=== PATIENT | female | born 1995 | race Caucasian/White ===

== ENCOUNTER 2023-02-19 16:37 | Inpatient (IN) | payer OTHER, SELFPAY ==
[2023-02-19 18:48] VITALS: BMI 29.2
[2023-02-19] MEDS ORDERED: Lidocaine 1% (PF) 30 ML VIAL SC PRN (19:35)
[2023-02-19] MEDS ORDERED: hydrALAZINE 20 MG/ML VIAL SLOW IVP PRN (19:35)
[2023-02-19] MEDS ORDERED: Butorphanol Tartrate 1 MG/ML VIAL SLOW IVP PRN (19:35)
[2023-02-19] MEDS ORDERED: Ondansetron PF 4 MG/2 ML Vial IVP PRN ×2 (19:35→23:26)
[2023-02-19] MEDS ORDERED: HYDROcodone/Acetaminophen 5/325 mg Tablet PO PRN ×2 (19:35)
[2023-02-19] MEDS ORDERED: Ibuprofen 800 MG TAB PO PRN (19:35)
[2023-02-19] MEDS ORDERED: Methylergonovine 0.2 MG/ML VIAL IM PRN (19:35)
[2023-02-19] MEDS ORDERED: Misoprostol 200 MCG TAB PR PRN (19:35)
[2023-02-19] MEDS ORDERED: Promethazine HCl 25 MG/ML VIAL IM PRN ×2 (19:35→23:26)
[2023-02-19] MEDS ORDERED: Misoprostol 100 MCG TAB VAG SCH (19:45)
[2023-02-19] MEDS ORDERED: Lactated Ringer's 1,000 ML IV SCH ×2 (19:45→21:45)
[2023-02-19] MEDS ORDERED: NS w/ Oxytocin 30 units 500 ML IV SCH ×2 (19:45)
[2023-02-19 20:02] LABS: Hemoglobin 11.8 g/dL (12.0-15.5); Mean Corpuscular HGB CONC 34.4 g/dL (32.0-36.0); Mean Corpuscular Hemoglobin 32.2 pg (27.0-33.0); Mean Corpuscular Volume 93.5 fl (81.6-98.3); Mean Platelet Volume 10.7 fl (7.4-10.4); Platelet Count 218 10x3/uL (150-450); RBC Distribution Width 12.4 % (11.5-14.5); Red Blood Cell (RBC) Count 3.67 10x6/uL (3.90-5.03); White Blood Cell (WBC) Count 9.7 10x3/uL (3.5-10.5)
[2023-02-19 20:22] LABS: Syphilis Antibody Nonreactive (Nonreactive)
[2023-02-19 20:23] LABS: HBSAg Index 0.16 S/CO (0-0.99); Hep B Surf Ag - L&D Non-Reactive S/CO (NonReactive)
[2023-02-19 22:19] LABS: #Monocytes 0.8 10x3/uL (0.0-1.1); #Neutrophils 7.2 10x3/uL (1.5-8.4); %Basophils 0.3 % (0.0-2.0); %Eosinophils 0.4 % (0.0-6.0); %Lymphocytes 15.5 % (18.0-47.0); %Monocytes 7.9 % (0.0-10.0); %Neutrophils 75.6 % (40.0-75.0); Mean Corpuscular HGB CONC 35.2 g/dL (32.0-36.0); Mean Corpuscular Hemoglobin 32.9 pg (27.0-33.0); Mean Corpuscular Volume 93.4 fl (81.6-98.3); Mean Platelet Volume 10.6 fl (7.4-10.4); Platelet Count 209 10x3/uL (150-450); RBC Distribution Width 12.5 % (11.5-14.5); Red Blood Cell (RBC) Count 3.65 10x6/uL (3.90-5.03); White Blood Cell (WBC) Count 9.5 10x3/uL (3.5-10.5)
[2023-02-19 22:26] LABS: ALT (SGPT) 11 U/L (8-55); AST (SGOT) 20 U/L (5-34); Albumin 3.8 g/dL (3.5-5.0); Alkaline Phosphatase 196 U/L (40-110); Anion Gap 19 mmol/L (10-20); BUN (Urea Nitrogen) 9 mg/dL (7.0-18.7); Bilirubin, Total 0.3 mg/dL (0.2-1.2); Calc. Creatinine Clearance 159 mL/min (70-130); Calcium 9.3 mg/dL (7.8-10.44); Carbon Dioxide 17 mmol/L (22-29); Chloride 106 mmol/L (98-107); Estimated GFR 116; Globulin 2.6 g/dL (2.4-3.5); Glucose 95 mg/dL (70-105); Magnesium 1.6 mg/dL (1.6-2.6); Potassium 4.1 mmol/L (3.5-5.1); Protein, Total 6.4 g/dL (6.0-8.3); Sodium 138 mmol/L (136-145)
[2023-02-19] MEDS ORDERED: CEFAZOLIN 2 GM VIAL ONE (22:47)
[2023-02-19] MEDS ORDERED: Azithromycin 500 MG VIAL ONE (22:47)
[2023-02-19] MEDS ORDERED: Ondansetron PF 4 MG/2 ML Vial ONE (22:58)
[2023-02-19] MEDS ORDERED: Dexamethasone 4 mg/ml Vial ONE (22:58)
[2023-02-19] MEDS ORDERED: Oxytocin 10 UNITS/ML VIAL ONE (22:58)
[2023-02-19] MEDS ORDERED: Fentanyl 100 MCG/2 ML VIAL ONE (22:59)
[2023-02-19] MEDS ORDERED: Morphine PF 10 MG/10 ML VIAL ONE (22:59)
[2023-02-19] MEDS ORDERED: Bicitra 30 ML UDCUP PO PRN (23:26)
[2023-02-19] MEDS ORDERED: HYDROmorphone 2 MG/ML VIAL SLOW IVP PRN (23:26)
[2023-02-19] MEDS ORDERED: Naloxone HCl 0.4 mg/ml Vial IV PRN (23:26)
[2023-02-19] MEDS ORDERED: Promethazine HCl 25 MG SUPP PR PRN (23:26)
[2023-02-19] MEDS ORDERED: Moisturizing Cream (Eucerin) 113 GM JAR TOP PRN (23:26)
[2023-02-19] MEDS ORDERED: diphenhydrAMINE 50 MG/ML VIAL IVP PRN (23:26)
[2023-02-19] MEDS ORDERED: Fentanyl 100 MCG/2 ML VIAL SLOW IVP PRN (23:26)
[2023-02-19] MEDS ORDERED: Ketorolac Tromethamine 30 MG/ML VIAL IVP PRN (23:26)
[2023-02-19] MEDS ORDERED: Meperidine HCl/PF 25 MG/ML VIAL SLOW IVP PRN (23:26)
[2023-02-19] MEDS ORDERED: Famotidine/PF 20 mg/2ml Vial SLOW IVP PRN (23:26)
[2023-02-19] MEDS ORDERED: Naloxone HCl 0.4 mg/ml Vial IVP PRN ×2 (23:26)
[2023-02-19] MEDS ORDERED: Ondansetron HCl/PF 4 MG/2 ML Vial IVP PRN (23:26)
[2023-02-19] MEDS ORDERED: Ketorolac Tromethamine 30 MG/ML VIAL IVP SCH (23:30)
[2023-02-19] MEDS ORDERED: CEFAZOLIN 2 GM in Sodium Chloride 0.9% 100 ML IVPB SCH (23:30)
[2023-02-19] MEDS ORDERED: Communication Order-Pharmacy FS SCH (23:30)
[2023-02-19 23:47] LABS: RapidComm Collect By CBN
[2023-02-19 23:48] LABS: RapidComm Collect By CBN; pH (Cord, venous) 7.297 (7.250-7.350)
[2023-02-20] MEDS ORDERED: Ketorolac Tromethamine 30 MG/ML VIAL ONE (00:03)
[2023-02-20] MEDS ORDERED: Misoprostol 200 MCG TAB PR PRN (07:11)
[2023-02-20] MEDS ORDERED: Methylergonovine 0.2 MG/ML VIAL IM PRN (07:11)
[2023-02-20] MEDS ORDERED: hydrALAZINE 20 MG/ML VIAL SLOW IVP PRN (07:11)
[2023-02-20] MEDS ORDERED: Ondansetron PF 4 MG/2 ML Vial IVP PRN (07:11)
[2023-02-20] MEDS ORDERED: diphenhydrAMINE 25 MG CAP PO PRN (07:11)
[2023-02-20] MEDS ORDERED: NS w/ Oxytocin 30 units 500 ML IV SCH (07:11)
[2023-02-20] MEDS ORDERED: Bisacodyl 10 MG SUPP PR PRN (07:11)
[2023-02-20] MEDS ORDERED: Boostrix 0.5 ML (Tdap) VIAL (>/=7 yrs of age) IM ONE (07:11)
[2023-02-20] MEDS ORDERED: Promethazine HCl 25 MG/ML VIAL IM PRN (07:11)
[2023-02-20] MEDS ORDERED: Simethicone Chewable 80 MG TAB PO PRN (07:11)
[2023-02-20 08:41] LABS: Hemoglobin 10.5 g/dL (12.0-15.5); Mean Corpuscular HGB CONC 34.4 g/dL (32.0-36.0); Mean Corpuscular Hemoglobin 31.9 pg (27.0-33.0); Mean Corpuscular Volume 92.7 fl (81.6-98.3); Mean Platelet Volume 10.7 fl (7.4-10.4); Platelet Count 209 10x3/uL (150-450); RBC Distribution Width 12.1 % (11.5-14.5); Red Blood Cell (RBC) Count 3.29 10x6/uL (3.90-5.03); White Blood Cell (WBC) Count 13.4 10x3/uL (3.5-10.5)
[2023-02-20] MEDS: Lactated Ringer's 1,000 ML IV SCH ×2 (09:04→09:42)
[2023-02-20] MEDS: Prenatal Vitamin 1 TAB PO SCH (09:41)
[2023-02-20] MEDS: Docusate 100 MG CAP PO SCH (09:41)
[2023-02-20] MEDS: Ferrous Sulfate 325 MG TAB PO SCH (09:41)
[2023-02-20 10:58] LABS: Amphetamine Not Detected (NotDetected); Barbiturates Screen Not Detected (NotDetected); Benzodiazepine Screen Not Detected (NotDetected); Cocaine Metabolite Screen Not Detected (NotDetected); Methadone Not Detected (NotDetected); Methamphetamine Not Detected (NotDetected); Opiate Screen Not Detected (NotDetected); Oxycodone Screen Not Detected (NotDetected); Phencyclidine (PCP) Not Detected (NotDetected); THC/Cannabinoid Screen Not Detected (NotDetected); Tricyclic Screen Not Detected (NotDetected)
[2023-02-20 11:25] LABS: Creatinine, Urine 42.75 mg/dL (47-110); Protein, Urine Random Quant Less than 10 mg/dL (1-14)
[2023-02-20] MEDS ORDERED: HYDROcodone/Acetaminophen 5/325 mg Tablet PO PRN ×3 (11:30)
[2023-02-21] MEDS: Docusate 100 MG CAP PO SCH ×2 (01:55→07:59)
[2023-02-21] MEDS: Ferrous Sulfate 325 MG TAB PO SCH ×2 (01:55→07:07)
[2023-02-21] MEDS: Lactated Ringer's 1,000 ML IV SCH ×2 (01:55→07:07)
[2023-02-21] MEDS: HYDROcodone/Acetaminophen 5/325 mg Tablet PO PRN ×3 (03:58→14:08)
[2023-02-21] MEDS: Ibuprofen 800 MG TAB PO SCH ×2 (05:51→14:07)
[2023-02-21] MEDS: Prenatal Vitamin 1 TAB PO SCH (07:59)
[2023-02-21 11:34] VITALS: BP 118/71; TEMP 97.7
== END 2023-02-21 16:30 | disposition home or self-care (01) | DRG 788 ==
LOC: CSHLD/OP 16:37 → CSHLD 22:58 → CSHPED 02-20 08:47
PROVIDERS: ADMIT Obstetrics & Gynecology; ATTEND Obstetrics & Gynecology
PROC: 10D00Z1 Extraction of Products of Conception, Low, Open Approach (ICD-10-PCS; principal; 2023-02-20)
DX: O76 Abnormality in fetal heart rate and rhythm complicating labor and delivery (principal); Z3A.41 41 weeks gestation of pregnancy; Z37.0 Single live birth; O48.0 Post-term pregnancy; O43.893 Other placental disorders, third trimester; O69.5XX0 Labor and delivery complicated by vascular lesion of cord, not applicable or unspecified; R03.0 Elevated blood-pressure reading, without diagnosis of hypertension; O90.89 Other complications of the puerperium, not elsewhere classified; Z79.899 Other long term (current) drug therapy; Z98.890 Other specified postprocedural states
CPT/HCPCS: 36415; 51702; 80053; 80306; 82570; 82805; 83735; 83880; 84156; 84443; 85027; 86780; 86850; 86900; 86901; 87340; 88307; 99285; J0456; J1100; J1885; J2274; J2405; J2590; J3010